=== PATIENT | male | born 1955 | race Caucasian/White ===

== ENCOUNTER 2019-07-09 12:10 | Emergency (ER) | payer MEDICAID ==
[~2019-07-09] VITALS: Ht 162.6 cm; Wt 88.0 kg
[2019-07-09 12:29] VITALS: Ht 162.6 cm; Wt 88.0 kg
[2019-07-09 13:45] VITALS: BP 147/71
== END 2019-07-09 13:45 | disposition home or self-care (01) ==
LOC: ED 12:10
DX: J45.901 Unspecified asthma with (acute) exacerbation (principal); I10 Essential (primary) hypertension
CPT/HCPCS: Q0092; U0002

== ENCOUNTER 2019-11-04 17:01 | Emergency (ER) | payer MEDICAID, SELFPAY ==
[~2019-11-04] VITALS: Ht 162.6 cm; Wt 85.3 kg
[~2019-11-04 17:01] MED LIST: AIRDUO RESPICL1 EAC2 INH; DELTASONE20 MG PO; PROAIR RES117 MCG/Ac; ZES5 PO
[2019-11-04 17:03] VITALS: Ht 162.6 cm; Wt 85.3 kg
[2019-11-04 19:12] VITALS: BP 123/87
== END 2019-11-04 19:12 | disposition home or self-care (01) ==
LOC: ED 17:01
DX: U07.1 COVID-19 (principal); J12.89 Other viral pneumonia; J45.909 Unspecified asthma, uncomplicated; I10 Essential (primary) hypertension; Z88.6 Allergy status to analgesic agent
CPT/HCPCS: J0696; Q0092; U0003-CS